=== PATIENT | male | born 2000 | race Caucasian/White ===

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

== ENCOUNTER 2018-04-21 10:01 | Emergency (ER) | END 2018-04-21 11:27 | disposition home or self-care (01) ==

== ENCOUNTER 2018-07-07 23:06 | Emergency (ER) | payer BC ==
[~2018-07-07] VITALS: Wt 97.3 kg
[~2018-07-07 23:06] MED LIST changes: -IBUP400T22 PO; +NAPR-985 PO; -PROPOFOL 200 MG INJ ONE
[2018-07-08] MEDS ORDERED: IBUPROFEN 600 MG TAB PO ONE
[2018-07-08] MEDS ORDERED: IBUP-1542 PO (00:49)
--- NOTE | 2018-07-08 00:52 | ERD ---
ER Documentation Chief Complaint Chief Complaint R KNEE, ANKLE PAIN X'S 1 DAY S/P SPORTS INJURY HPI This 17-year-old male presents with right knee pain after falling playing basketball today. He landed on his right knee directly. He has difficulty extending although no deficits. He has no bleeding, redness or lacerations. Denies other injuries. ROS All systems reviewed and are negative except as per history of present illness. Medications Home Meds Active Scripts Ibuprofen* (Motrin*) 600 Mg Tab, 600 MG PO Q6, #20 TAB Prov:DEVYN ALEMAN MD 07/08/18 Naproxen* (Naprosyn*) 500 Mg Tablet, 500 MG PO BID PRN for PAIN AND/OR INFLAMMATION, #30 TAB Prov:JODIE HUA PA-C 04/21/18 Allergies Allergies: Coded Allergies: No Known Allergy (Unverified , 06/21/16) PMhx/Soc Medical and Surgical Hx: pt denies Medical Hx History of Surgery: Yes (left knee sx) Anesthesia Reaction: No Hx Neurological Disorder: No Hx Respiratory Disorders: No Hx Cardiac Disorders: No Hx Psychiatric Problems: No Hx Miscellaneous Medical Probl: No Hx Alcohol Use: No Hx Substance Use: No Hx Tobacco Use: No Smoking Status: Never smoker FmHx Family History: No diabetes, No coronary disease, No other Physical Exam Vitals Vital Signs Date Temp Pulse Resp B/P (MAP) Pulse Ox O2 O2 Flow FiO2 Time Delivery Rate 07/07/18 96.7 80 18 145/67 97 23:07 (93) Physical Exam Const: No acute distress Head: Atraumatic Eyes: Normal Conjunctiva ENT: Normal External Ears, Nose and Mouth. Neck: Full range of motion. No meningismus. Resp: Clear to auscultation bilaterally Cardio: Regular rate and rhythm, no murmurs Abd: Soft, non tender, non distended. Normal bowel sounds Skin: No petechiae or rashes Back: No midline or flank tenderness Ext: No cyanosis, or edema Neur: Awake and alert Psych: Normal Mood and Affect Results 24 hrs Current Medications Medications Dose Sig/Bernard Start Time Status Last (Trade) Ordered Route PRN Stop Time Admin Dose Reason Admin Ibuprofen 600 mg ONCE ONCE 07/08/18 DC 07/08/18 (Motrin) PO 00:00 00:10 07/08/18 00:01 Procedures/MDM X-ray right knee 4V patella interpreted by me: Bones: No fracture Joints: No dislocation Foreign body: None. Impression-normal right knee x-ray Patient is placed in a right knee immobilizer and given crutches with crutch training, and ibuprofen. Patient presents with signs and symptoms of right knee sprain without signs of fracture, dislocation, ischemia, deficits, infection. Discharged home with recommendations for rest, ice, ibuprofen, primary care and orthopedic follow-up for pain next week. He should return sooner for fevers, redness, new or worsening symptoms. The patient was stable with no new co mplaints during the ER course. Clinically, there is no current evidence to suggest meningitis, sepsis, acute abdomen, pneumonia, stroke, acute coronary syndrome, pulmonary embolism, aortic dissection or any other emergent condition appearing to require further evaluation or hospitalization. Patient counseled regarding my diagnostic impression and care plan. Prior to discharge all questions answered. Pt agrees with treatment plan and understands strict return precautions. Pt is instructed to follow up with primary care provider within 24- 48 hours. Precautionary instructions provided including instructions to return to the ER if not improving or for any worsening or changing symptoms or concerns. Departure Diagnosis: Primary Impression: Knee injury Encounter type: initial encounter Laterality: right Qualified Codes: S89.91XA - Unspecified injury of right lower leg, initial encounter Condition: Stable Patient Instructions: Knee Sprain Referrals: DOCTOR,NOT ON STAFF (PCP) YING OLIVA MD Additional Instructions: X-ray read as normal. Recheck for new or worsening symptoms with primary care doctor. See orthopedist for persistent pain despite rest and ice. May need authorization from primary doctor for orthopedist visit. DEVYN ALEMAN MD Jul 08, 2018 00:52
[2018-07-08 01:42] VITALS: BP 148/70; PULSE 93; RESP 18
== END 2018-07-08 01:44 | disposition home or self-care (01) ==
LOC: FTE 23:06
DX: S89.91XA Unspecified injury of right lower leg, initial encounter (principal); W18.39XA Other fall on same level, initial encounter; Y92.310 Basketball court as the place of occurrence of the external cause
CPT/HCPCS: 29505; 73564; 99283; Z7610